=== PATIENT | female | born 1945 | race Hispanic/Latino ===

== ENCOUNTER 2023-10-09 04:17 | Inpatient (IN) | payer MEDICAID, SELFPAY ==
[2023-10-09] MEDS ORDERED: dilTIAZem 25 MG/5 ML VIAL ONE ×2 (04:19→06:05)
[2023-10-09 04:49] LABS: #Basophils 0.04 10x3/uL (0.0-0.2); %Basophils 0.6 % (0.0-1.0); %Eosinophils 1.2 % (0.0-10.0); %Lymphocytes 10.9 % (21.0-51.0); %Monocytes 11.5 % (0.0-10.0); %Neutrophils 75.5 % (42.0-75.0); Hematocrit 28.7 % (36.0-47.0); Hemoglobin 8.8 g/dL (12.0-16.0); Mean Corpuscular HGB CONC 30.7 g/dL (32.0-36.0); Mean Corpuscular Hemoglobin 20.7 pg (27.0-31.0); Mean Corpuscular Volume 67.4 fL (78.0-98.0); Mean Platelet Volume 10.3 fL (7.4-10.4); Platelet Count 330 10x3/uL (130-400); RBC Distribution Width 18.1 % (11.5-14.5); Red Blood Cell (RBC) Count 4.26 mill/uL (4.20-5.40)
[2023-10-09 05:15] LABS: Anisocytosis SLIGHT = 6-15 cells HPF (0-5); Hypochromia SLIGHT = 6-15 cells HPF (0-5); Microcytosis SLIGHT = 6-15 cells HPF (0-5); Platelet Adequacy Comment Platelets Normal; Polychromasia SLIGHT = 2-3 cells HPF (0-2)
[2023-10-09 07:09] LABS: ALT (SGPT) 39 U/L (8-55); AST (SGOT) 28 U/L (5-34); Albumin 3.7 g/dL (3.4-4.8); Alkaline Phosphatase 92 U/L (40-110); Anion Gap 14 mmol/L (10-20); BUN (Urea Nitrogen) 29 mg/dL (9.8-20.1); Bilirubin, Total 1.6 mg/dL (0.2-1.2); Calc. Creatinine Clearance 0 mL/min (70-130); Calcium 9.3 mg/dL (7.8-10.44); Carbon Dioxide 21 mmol/L (23-31); Chloride 111 mmol/L (98-107); Estimated GFR 74; Globulin 2.7 g/dL (2.4-3.5); Glucose 117 mg/dL (83-110); Potassium 3.8 mmol/L (3.5-5.1); Protein, Total 6.4 g/dL (5.8-8.1); Sodium 142 mmol/L (136-145)
[2023-10-09 07:12] LABS: Troponin I 0.032 ng/mL (< 0.028)
[2023-10-09] MEDS ORDERED: Enoxaparin 30 MG (0.3 mL) SYRINGE ONE (07:17)
[2023-10-09] MEDS ORDERED: Furosemide 20 MG (2 mL) VIAL ONE ×2 (07:17→17:29)
[2023-10-09] MEDS ORDERED: Enoxaparin 60 MG (0.6 mL) SYRINGE ONE (07:22)
[2023-10-09 08:58] VITALS: BMI 27.7
[2023-10-09 09:12] LABS: Troponin I 0.028 ng/mL (< 0.028)
[2023-10-09] MEDS ORDERED: Acetaminophen 650 MG Suppository PR PRN (10:34)
[2023-10-09] MEDS ORDERED: Communication Order-Pharmacy FS SCH (10:34)
[2023-10-09] MEDS ORDERED: Acetaminophen 325 MG TAB PO PRN (10:34)
[2023-10-09] MEDS ORDERED: Iopamidol-370 76% 500 ML MDV (1 ML CHARGE) ONE (11:19)
[2023-10-09] MEDS: dilTIAZem 30 MG TAB PO SCH ×2 (12:13→16:54)
[2023-10-09] MEDS ORDERED: Digoxin 0.5 MG/2 ML AMP ONE (15:31)
[2023-10-09] MEDS: Digoxin 0.5 MG/2 ML AMP SLOW IVP SCH (15:37)
[2023-10-09 15:48] LABS: Iron Binding Capacity, Total 368 mcg/dL (265-497); Magnesium 2.1 mg/dL (1.6-2.6); Troponin I 0.026 ng/mL (< 0.028)
[2023-10-09] MEDS: Furosemide 40 MG (4 mL) VIAL SLOW IVP SCH (16:09)
[2023-10-09 16:10] LABS: Ferritin 22.89 ng/mL (10-291); Thyroid Stimulating Hormone 1.2863 uIU/mL (0.35-4.94)
[2023-10-09] MEDS: dilTIAZem 125 MG in Sodium Chloride 0.9% 100 ML IVPB SCH (18:42)
[2023-10-09] MEDS: Enoxaparin 60 MG (0.6 mL) SYRINGE SC SCH (20:47)
[2023-10-09] MEDS: Famotidine 20 MG TAB PO SCH (20:48)
[2023-10-10 04:38] LABS: #Basophils 0.05 10x3/uL (0.0-0.2); %Basophils 0.8 % (0.0-1.0); %Lymphocytes 17.9 % (21.0-51.0); %Monocytes 14.1 % (0.0-10.0); %Neutrophils 63.9 % (42.0-75.0); Hematocrit 24.8 % (36.0-47.0); Hemoglobin 7.4 g/dL (12.0-16.0); Mean Corpuscular HGB CONC 29.8 g/dL (32.0-36.0); Mean Corpuscular Hemoglobin 20.3 pg (27.0-31.0); Mean Corpuscular Volume 68.1 fL (78.0-98.0); Mean Platelet Volume 9.7 fL (7.4-10.4); Platelet Count 292 10x3/uL (130-400); RBC Distribution Width 17.6 % (11.5-14.5); Red Blood Cell (RBC) Count 3.64 mill/uL (4.20-5.40)
[2023-10-10 04:44] LABS: ALT (SGPT) 28 U/L (8-55); AST (SGOT) 19 U/L (5-34); Albumin 2.9 g/dL (3.4-4.8); Alkaline Phosphatase 76 U/L (40-110); Anion Gap 13 mmol/L (10-20); BUN (Urea Nitrogen) 23 mg/dL (9.8-20.1); Bilirubin, Total 1.5 mg/dL (0.2-1.2); Calc. Creatinine Clearance 60 mL/min (70-130); Calcium 8.4 mg/dL (7.8-10.44); Carbon Dioxide 23 mmol/L (23-31); Chloride 109 mmol/L (98-107); Estimated GFR 88; Globulin 2.2 g/dL (2.4-3.5); Glucose 93 mg/dL (83-110); Potassium 3.3 mmol/L (3.5-5.1); Protein, Total 5.1 g/dL (5.8-8.1); Sodium 142 mmol/L (136-145)
[2023-10-10 05:19] LABS: Hypochromia SLIGHT = 6-15 cells HPF (0-5); Microcytosis SLIGHT = 6-15 cells HPF (0-5); Platelet Adequacy Comment Platelets Normal; Polychromasia SLIGHT = 2-3 cells HPF (0-2); Target Cells SLIGHT = 2-5 cells HPF (0-1)
[2023-10-10] MEDS ORDERED: Potassium Chloride 40 MEQ in Premix 1 BAG IVPB SCH (09:00)
[2023-10-10 10:16] LABS: Hemoglobin 9.3 g/dL (12.0-16.0)
[2023-10-10] MEDS: Potassium Chloride 20 MEQ in Premix 1 BAG IVPB SCH (10:44)
[2023-10-10] MEDS: dilTIAZem 30 MG TAB PO SCH ×2 (11:04→16:38)
[2023-10-10] MEDS: Senokot S 8.6-50 MG TAB PO PRN (21:29)
[2023-10-11] MEDS: dilTIAZem CD 180 MG CAP PO SCH (10:01)
[2023-10-11 11:58] VITALS: TEMP 97.4
[2023-10-11] MEDS: Bisacodyl 10 MG SUPP PR SCH (12:57)
[2023-10-11 15:45] VITALS: BP 123/67
[2023-10-11] MEDS ORDERED: Ferrous Sulfate 325 MG TAB PO SCH (17:00)
[2023-10-12] MEDS ORDERED: Furosemide 40 MG TAB PO SCH (07:30)
== END 2023-10-11 18:30 | disposition home or self-care (01) | DRG 308 ==
LOC: ERS 04:17 → ERHOLD 08:16 → 2NO 18:03
PROVIDERS: ADMIT Internal Medicine; ATTEND Internal Medicine
DX: I48.91 Unspecified atrial fibrillation (principal); G93.41 Metabolic encephalopathy; J90 Pleural effusion, not elsewhere classified; I50.30 Unspecified diastolic (congestive) heart failure; I5A Non-ischemic myocardial injury (non-traumatic); I11.0 Hypertensive heart disease with heart failure; E87.70 Fluid overload, unspecified; D64.9 Anemia, unspecified; F03.A0 Unspecified dementia, mild, without behavioral disturbance, psychotic disturbance, mood disturbance, and anxiety; Z79.899 Other long term (current) drug therapy; Z98.890 Other specified postprocedural states; Z90.89 Acquired absence of other organs; Z87.891 Personal history of nicotine dependence
CPT/HCPCS: 36415; 36416; 71045; 71275; 80053; 82274; 82728; 83540; 83550; 83735; 83880; 84443; 84484; 85025; 85046; 93005; 93306; 96372; 96374; 96375; 96376; J1160; J1650; J1940; J3480; J3490; Q9967

== ENCOUNTER 2023-11-30 22:00 | Inpatient (IN) | payer SELFPAY, OTHER ==
[2023-11-30] MEDS ORDERED: Magnesium 2 GM/50 ML BAG (IN WATER) ONE (23:13)
[2023-11-30 23:51] LABS: #Basophils 0.03 10x3/uL (0.0-0.2); %Basophils 0.4 % (0.0-1.0); %Eosinophils 0.9 % (0.0-10.0); %Lymphocytes 13.5 % (21.0-51.0); %Neutrophils 76.8 % (42.0-75.0); Hematocrit 40.6 % (36.0-47.0); Mean Corpuscular Hemoglobin 24.9 pg (27.0-31.0); Mean Corpuscular Volume 77.8 fL (78.0-98.0); Mean Platelet Volume 9.6 fL (7.4-10.4); Platelet Count 317 10x3/uL (130-400); Red Blood Cell (RBC) Count 5.22 mill/uL (4.20-5.40)
[2023-11-30 23:54] LABS: ALT (SGPT) 17 U/L (8-55); AST (SGOT) 28 U/L (5-34); Albumin 3.8 g/dL (3.4-4.8); Alkaline Phosphatase 92 U/L (40-110); Anion Gap 16 mmol/L (10-20); BUN (Urea Nitrogen) 24 mg/dL (9.8-20.1); Bilirubin, Total 0.6 mg/dL (0.2-1.2); Calc. Creatinine Clearance 0 mL/min (70-130); Calcium 9.5 mg/dL (7.8-10.44); Carbon Dioxide 21 mmol/L (23-31); Chloride 104 mmol/L (98-107); Estimated GFR 71; Globulin 3.2 g/dL (2.4-3.5); Glucose 106 mg/dL (83-110); Potassium 3.7 mmol/L (3.5-5.1); Sodium 137 mmol/L (136-145)
[2023-11-30] MEDS ORDERED: Azithromycin 500 MG VIAL ONE (23:56)
[2023-11-30 23:58] LABS: INR-International Normal Ratio 1.2; Prothrombin Time 15.3 sec (12.0-14.7)
[2023-11-30 23:59] LABS: PTT 32.1 sec (22.9-36.1)
[2023-12-01 00:15] LABS: Anisocytosis MODERATE=16-30 cells HPF (0-5); Burr Cells SLIGHT = 2-5 cells HPF (0-1); Macrocytosis SLIGHT = 6-15 cells HPF (0-5); Platelet Adequacy Comment Platelets Normal; Polychromasia MODERATE = 3-4 cells HPF (0-2)
[2023-12-01 00:15] LABS: Bacteria/HPF None Seen HPF (None Seen); Bilirubin Negative (Negative); Blood, Urine 2+ (Negative); CAUTI Indications for Culture Dysuria,urgency,freq; Clarity Clear (Clear); Glucose, Urine (Dipstick) Normal (Negative); Ketone, Urine Negative (Negative); Leukocyte 250 Leu/uL (Negative); Nitrite Negative (Negative); Protein, Urine (Dipstick) Negative (Neg-Trace); Specific Gravity, Urine 1.016 (1.002-1.036); Squamous Epithelial 0-3 HPF (0-3); Urobilinogen Normal mg/dL (Less than 2); WBC/HPF 0-3 HPF (0-3)
[2023-12-01 00:16] LABS: Urine Culture Reflex No No
[2023-12-01] MEDS ORDERED: cefTRIAXone (ROCEPHIN) 1 GM VIAL ONE (01:30)
[2023-12-01 02:31] VITALS: BMI 25.6
[2023-12-01] MEDS ORDERED: Acetaminophen 325 MG TAB PO PRN (02:38)
[2023-12-01] MEDS ORDERED: Labetalol HCl 100 MG/20 ML VIAL SLOW IVP PRN (02:43)
[2023-12-01] MEDS ORDERED: hydrALAZINE 20 MG/ML VIAL SLOW IVP PRN (02:43)
[2023-12-01] MEDS ORDERED: Ondansetron ODT 4 MG TAB PO PRN (03:16)
[2023-12-01] MEDS ORDERED: Acetaminophen 650 MG Suppository PR PRN (03:16)
[2023-12-01] MEDS ORDERED: Ondansetron PF 4 MG/2 ML Vial IVP PRN (03:16)
[2023-12-01 05:55] LABS: Anion Gap 11 mmol/L (10-20); BUN (Urea Nitrogen) 20 mg/dL (9.8-20.1); Calc. Creatinine Clearance 51 mL/min (70-130); Calcium 8.5 mg/dL (7.8-10.44); Carbon Dioxide 23 mmol/L (23-31); Chloride 108 mmol/L (98-107); Estimated GFR 88; Glucose 95 mg/dL (83-110); Sodium 139 mmol/L (136-145)
[2023-12-01 05:59] LABS: #Basophils 0.06 10x3/uL (0.0-0.2); %Basophils 0.8 % (0.0-1.0); %Eosinophils 1.5 % (0.0-10.0); %Lymphocytes 20.1 % (21.0-51.0); %Monocytes 9.4 % (0.0-10.0); %Neutrophils 68.1 % (42.0-75.0); Hematocrit 35.8 % (36.0-47.0); Hemoglobin 11.4 g/dL (12.0-16.0); Mean Corpuscular HGB CONC 31.8 g/dL (32.0-36.0); Mean Corpuscular Hemoglobin 25.1 pg (27.0-31.0); Mean Corpuscular Volume 78.9 fL (78.0-98.0); Mean Platelet Volume 9.5 fL (7.4-10.4); Platelet Count 275 10x3/uL (130-400); Red Blood Cell (RBC) Count 4.54 mill/uL (4.20-5.40)
[2023-12-01] MEDS: Potassium Chloride 40 MEQ in Premix 1 BAG IVPB SCH (06:44)
[2023-12-01] MEDS: dilTIAZem CD 180 MG CAP PO SCH (09:20)
[2023-12-01] MEDS: Pantoprazole 40 MG VIAL IVP SCH (09:21)
[2023-12-01] MEDS: Digoxin 0.5 MG/2 ML AMP SLOW IVP SCH (10:57)
[2023-12-01] MEDS ORDERED: Bisacodyl 5 MG TAB PO PRN (19:21)
[2023-12-01] MEDS: traMADol HCl 50 MG TAB PO PRN (20:26)
[2023-12-01] MEDS: Bisacodyl 5 MG TAB PO SCH (20:27)
[2023-12-01] MEDS ORDERED: Azithromycin 500 MG in Sodium Chloride 0.9% 250 ML 250 ML IVPB SCH (21:00)
[2023-12-01] MEDS ORDERED: cefTRIAXone\\ROCEPHIN 1 GM in Sodium Chloride 0.9% 100 ML IVPB SCH (23:59)
[2023-12-03 16:02] VITALS: TEMP 98.1
[2023-12-03 16:58] VITALS: BP 132/97
[2023-12-03] MEDS ORDERED: Doxycycline 100 MG CAP PO SCH (21:00)
[2023-12-03] MEDS ORDERED: Cefdinir 300 MG CAP PO SCH (21:00)
== END 2023-12-03 18:59 | disposition home or self-care (01) | DRG 82 ==
LOC: ERS 22:00 → CCU 12-01 01:03 → 2NO 12-01 15:36
PROVIDERS: ADMIT Student in an Organized Health Care Education/Training Program; ATTEND Internal Medicine
DX: S06.5XAA Traumatic subdural hemorrhage with loss of consciousness status unknown, initial encounter (principal); J18.9 Pneumonia, unspecified organism; J90 Pleural effusion, not elsewhere classified; Z66 Do not resuscitate; I10 Essential (primary) hypertension; I48.91 Unspecified atrial fibrillation; E87.6 Hypokalemia; W18.30XA Fall on same level, unspecified, initial encounter; M24.411 Recurrent dislocation, right shoulder; Z79.2 Long term (current) use of antibiotics; Z79.899 Other long term (current) drug therapy; Z90.89 Acquired absence of other organs; Z98.890 Other specified postprocedural states; Z79.01 Long term (current) use of anticoagulants; Z87.891 Personal history of nicotine dependence; Z86.73 Personal history of transient ischemic attack (TIA), and cerebral infarction without residual deficits
CPT/HCPCS: 36415; 70450; 71045; 72125; 80048; 80053; 81001; 83605; 84484; 85025; 85610; 85730; 87040; 87086; 93005; C9113; J0456; J0696; J1160; J3475; J3480